=== PATIENT | male | born 1975 | race African-American/Black ===

== ENCOUNTER → 2017-03-23 | Emergency (ER) | payer OTHER ==
[~2017-03-23] VITALS: Ht 190.5 cm; Wt 90.9 kg
[~2017-03-23] MED LIST: BACTROBAN OINTM22 GM TP
[2017-03-23 17:43] VITALS: BP 124/69
== END | disposition home or self-care (01) ==
LOC: EME 11:45
PROC: 0T9B70Z Drainage of Bladder with Drainage Device, Via Natural or Artificial Opening (ICD-10-PCS; principal; 2017-03-23)
DX: N48.89 Other specified disorders of penis (principal); G82.20 Paraplegia, unspecified; T14.8XXS Other injury of unspecified body region, sequela; X58.XXXS Exposure to other specified factors, sequela
CPT/HCPCS: 99281; 99284

== ENCOUNTER 2017-03-31 07:18 | Emergency (ER) | payer OTHER ==
[~2017-03-31] VITALS: Ht 190.5 cm; Wt 97.6 kg
[2017-03-31 08:08] LABS: BASOPHIL COUNT 0.1 K/uL (0-0.1); EOSINOPHIL (%) 0.6 % (0-5); EOSINOPHIL COUNT 0.1 K/uL (0-0.3); IMMATURE GRANULOCYTE (%) 0.4 % (0.0-0.7); INSTRUMENT ABS NEUTROPHIL CT 4.4 K/uL; LYMPHOCYTE COUNT 2.7 K/uL (1.0-2.8); MCH 25.9 PG (29.0-34.0); MCHC 31.4 G/DL (30.0-36.0); MCV 82.4 FL (86-99); MEAN PLAT.VOLUME 12.9 uM^3 (9.0-12.4); MONOCYTE (%) 9.7 % (3-12); MONOCYTE COUNT 0.8 K/uL (0-0.8); NEUTROPHIL COUNT 4.4 K/uL (1.8-6.4); PLATELET COUNT 249 K/uL (156-360); RBC DIS.WIDTH-CV 15.9 % (11.8-14.6); RBC DIS.WIDTH-SD 47.8 % (39-53)
[2017-03-31 08:31] LABS: ADD MIUA? YES; BILIRUBIN NEGATIVE; BLOOD NEGATIVE; COLOR YELLOW ((YELLOW)); GLUCOSE (STRIP) >=500; KETONES 80; LEUKOCYTES NEGATIVE; NITRITE NEGATIVE; PROTEIN (STRIP) 100; SPECIFIC GRAVITY 1.039 (1.000-1.030); UROBILINOGEN 0.2 MG/DL (0.2-1.0)
[2017-03-31 08:41] LABS: BACTERIA NONE SEEN /HPF; BUDDING YEAST 1+; EPITHELIAL CELLS RARE /HPF; MUCUS TRACE /LPF; WHITE BLOOD CELLS 0-5 /HPF (0-5)
[2017-03-31 09:47] LABS: CHLORIDE 105 mEq/L (99-109); SODIUM 136 mEq/L (136-147)
[2017-03-31 09:50] LABS: GLUCOSE 253 mg/dL (70-99)
[2017-03-31 09:51] LABS: ANION GAP 14 MEQ/L (2-14)
[2017-03-31 09:52] LABS: TOTAL BILIRUBIN 0.4 mg/dL (0.0-1.0)
[2017-03-31 09:53] LABS: ALKALINE PHOSPHATASE 164 IU/L (3-129); GFR ESTIMATE (CALCULATED) > 59 mL/min/
[2017-03-31 09:54] LABS: UREA NITROGEN (BUN) 10 mg/dL (9-23)
[2017-03-31 09:57] LABS: LIPASE 15 U/L (1.0-51.0)
[2017-03-31] MEDS ORDERED: CITRATE OF MAG296 ML PO (11:44)
[2017-03-31 12:11] VITALS: BP 116/70
== END 2017-03-31 12:37 | disposition home or self-care (01) ==
LOC: EME 07:18
PROVIDERS: Emergency Medicine
DX: R10.84 Generalized abdominal pain (principal); K59.00 Constipation, unspecified; G82.20 Paraplegia, unspecified; T14.8XXS Other injury of unspecified body region, sequela; V89.2XXS Person injured in unspecified motor-vehicle accident, traffic, sequela
CPT/HCPCS: 74177; 80053; 81003; 83690; 85025; 99281; 99285; J2270; J2405; J7030

== ENCOUNTER 2017-04-05 20:24 | Emergency (ER) | payer OTHER ==
[~2017-04-05] VITALS: Ht 190.5 cm; Wt 90.9 kg
[~2017-04-05 20:24] MED LIST changes: +CITRATE OF MAG296 ML PO
[2017-04-06 00:10] LABS: ADD MIUA? YES; BILIRUBIN NEGATIVE; BLOOD MODERATE; COLOR YELLOW ((YELLOW)); GLUCOSE (STRIP) >=500; KETONES 80; LEUKOCYTES LARGE; NITRITE NEGATIVE; PROTEIN (STRIP) 30; UROBILINOGEN 0.2 MG/DL (0.2-1.0)
[2017-04-06 00:15] LABS: HEMATOCRIT 47.9 % (38.0-50.0); MCH 26.1 PG (29.0-34.0); MCHC 31.9 G/DL (30.0-36.0); MCV 81.6 FL (86-99); RBC DIS.WIDTH-CV 15.6 % (11.8-14.6); RBC DIS.WIDTH-SD 46.3 % (39-53); RED BLOOD COUNT 5.87 M/uL (4.00-5.50); WHITE BLOOD COUNT 6.7 K/uL (4.1-10.2)
[2017-04-06 00:27] LABS: CHLORIDE 100 mEq/L (99-109); POTASSIUM 4.2 mEq/L (3.7-5.4); SODIUM 137 mEq/L (136-147)
[2017-04-06 00:29] LABS: GLUCOSE 188 mg/dL (70-99)
[2017-04-06 00:30] LABS: ANION GAP 14 MEQ/L (2-14)
[2017-04-06 00:30] LABS: RED BLOOD CELLS 15-20 /HPF (0-5)
[2017-04-06 00:31] LABS: EPITHELIAL CELLS RARE /HPF; MUCUS RARE /LPF; WHITE BLOOD CELLS TNTC /HPF (0-5)
[2017-04-06 00:32] LABS: BACTERIA 1+ /HPF; UCUL ADDED? YES
[2017-04-06 00:33] LABS: GFR ESTIMATE (CALCULATED) > 59 mL/min/ (58.99-99999)
[2017-04-06 00:34] LABS: UREA NITROGEN (BUN) 8 mg/dL (9-23)
[2017-04-06] MEDS ORDERED: CIPRO500 MG PO (00:45)
[2017-04-06 00:58] VITALS: BP 123/77
[2017-04-06 01:41] LABS: PLATELET CLUMPS PRESENT - PLATELET COUNT APPEARS ADQ.; PLATELET COUNT UNABLE TO REPORT K/uL (156-360)
== END 2017-04-06 01:26 | disposition home or self-care (01) ==
LOC: EME 20:24
PROVIDERS: Emergency Medicine
DX: N39.0 Urinary tract infection, site not specified (principal); Z46.6 Encounter for fitting and adjustment of urinary device; G82.20 Paraplegia, unspecified; Z87.891 Personal history of nicotine dependence
CPT/HCPCS: 80048; 81003; 85027; 87077; 87086; 87186; 99281; 99284